=== PATIENT | male | born 1935 | race Caucasian/White ===

== ENCOUNTER → 2017-05-14 | Outpatient (CLI) | payer MEDICARE, BC ==
[~2017-05-14] MED LIST: ACET325 PO; AMLO10 PO; ASPI325EC PO; ASPI81CH PO; ASPI81EC PO; ATOR40TA PO; Ambien10 MG PO; CARB200 PO; CELE200 PO; CEPH500 PO; DIAZ5; Desyrel50 MG PO; Ferrous Sulfat325 M2 PO; GABA100 PO; GABA300 PO; HYDR1TAB94 PO; IBUP600; LEVSOD125 PO; LEVSOD50 PO; LIPO FLAVONOID PO; LIPOFLAVONOID PO; LOSA50 PO; LOSARTAN POTAS100 MG PO; MELA3 PO; NEBI10 PO; NEBI5 PO; OXYC5 PO; Omeprazole20 M1 PO; TADA10TA PO; TRAZ50 PO; [UNRECOGNIZED DRUG - OTHER]; [UNRECOGNIZED DRUG - OTHER] PO; [UNRECOGNIZED DRUG - REMARK] PO; [UNRECOGNIZED DRUG - REMARK] PO
== END | disposition home or self-care (01) ==
LOC: PLD 07:46 → LAB SHORT 07:46
DX: D22.5 Melanocytic nevi of trunk (principal)
CPT/HCPCS: 88305

== ENCOUNTER 2017-10-27 05:44 | Day surgery (SDC) | payer MEDICARE, BC ==
[2017-10-26 17:10] LABS: BASOPHILS ABSOLUTE AUTO 0.03 K/mm3 (0.00-0.23); BASOPHILS PERCENT AUTO 0 % (0-2); EOSINOPHILS ABSOLUTE AUTO 0.07 K/mm3 (0.00-0.68); EOSINOPHILS PERCENT AUTO 1 % (0-6); Hematocrit 44.8 % (37.0-53.0); Hemoglobin 14.6 g/dL (13.5-17.5); IMMATURE GRAN ABSOLUTE AUTO 0.01 K/mm3 (0.00-0.10); IMMATURE GRAN PERCENT AUTO 0 % (0-1); LYMPHOCYTES ABSOLUTE AUTO 1.47 K/mm3 (0.84-5.20); LYMPHOCYTES PERCENT AUTO 22 % (21-46); MONOCYTES ABSOLUTE AUTO 0.52 K/mm3 (0.16-1.47); MONOCYTES PERCENT AUTO 8 % (4-13); Mean Corpuscular HGB 26.9 pg (26.0-34.0); Mean Corpuscular HGB Conc 32.6 g/dL (31.5-36.5); Mean Corpuscular Volume 83 fL (80-100); Mean Platelet Volume 8.6 fL (9.1-12.4); NEUTROPHILS ABSOLUTE AUTO 4.58 K/mm3 (1.96-9.15); NEUTROPHILS PERCENT AUTO 69 % (41-73); Platelet Count 197 K/mm3 (150-400); RDW Coefficient Variation 14.9 % (11.7-14.2); RDW Standard Deviation 44.9 fL (35.1-46.3); Red Blood Cell Count 5.42 M/mm3 (4.30-5.90); White Blood Cell Count 6.68 K/mm3 (4.00-11.30)
[2017-10-26 17:30] LABS: International Normalized Ratio 1.13; Prothrombin Time Results 11.6 Sec (9.7-11.5)
[2017-10-26 18:01] LABS: Anion Gap 8 mmol/L (6-16); Blood Urea Nitrogen 18 mg/dL (8-24); Bun/Creatinine Ratio 18.9 (12.0-20.0); CO2, Blood 25 mmol/L (21-32); Calcium, Blood 9.2 mg/dL (8.5-10.1); Chloride, Blood 106 mmol/L (98-108); Creatinine, Blood 0.95 mg/dL (0.60-1.20); Glomerular Filtration Rate >60 (60-); Glucose, Blood 173 mg/dL (70-99); Magnesium, Blood 2.1 mg/dL (1.6-2.4); Potassium, Blood 3.8 mmol/L (3.5-5.5); Sodium, Blood 139 mmol/L (136-145)
[~2017-10-27] VITALS: Ht 180.3 cm; Wt 95.0 kg
[~2017-10-27 05:44] MED LIST changes: -AMLO10 PO; -ATOR40TA PO; -CEPH500 PO; -Desyrel50 MG PO; -HYDR1TAB94 PO; -LOSARTAN POTAS100 MG PO
[2017-10-27] MEDS ORDERED: Desyrel50 MG PO (06:46)
[2017-10-27] MEDS ORDERED: LOSARTAN POTAS100 MG PO (06:46)
[2017-10-27] MEDS ORDERED: ASPI81CH PO (06:47)
[2017-10-27] MEDS ORDERED: ATOR40TA PO (06:47)
[2017-10-27] MEDS ORDERED: AMLO10 PO (06:48)
[2017-10-28] MEDS ORDERED: CEPH500 PO (09:13)
[2017-10-28] MEDS ORDERED: HYDR1TAB94 PO (09:13)
== END 2017-10-28 09:46 | disposition home or self-care (01) ==
LOC: MHTC 05:44 → PCU 08:56 → MHTC 10-28 09:46
PROVIDERS: Internal Medicine Cardiovascular Disease
PROC: 02HK3JZ Insertion of Pacemaker Lead into Right Ventricle, Percutaneous Approach (ICD-10-PCS; principal; 2017-10-27)
PROC: 0JH606Z Insertion of Pacemaker, Dual Chamber into Chest Subcutaneous Tissue and Fascia, Open Approach (ICD-10-PCS; principal; 2017-10-27)
PROC: 02H63JZ Insertion of Pacemaker Lead into Right Atrium, Percutaneous Approach (ICD-10-PCS; principal; 2017-10-27)
DX: I44.2 Atrioventricular block, complete (principal); I10 Essential (primary) hypertension; E78.5 Hyperlipidemia, unspecified; G47.33 Obstructive sleep apnea (adult) (pediatric); I73.9 Peripheral vascular disease, unspecified; E89.0 Postprocedural hypothyroidism; Z86.73 Personal history of transient ischemic attack (TIA), and cerebral infarction without residual deficits; Z90.49 Acquired absence of other specified parts of digestive tract; Z96.653 Presence of artificial knee joint, bilateral; Z79.899 Other long term (current) drug therapy
CPT/HCPCS: 33208; 36415; 71045; 80048; 83735; 83880; 85025; 85610; 93005; 93010; 99152; 99153; C1785; C1898; J0690; J1644; J2250; J3010; J7030; J7040; Q9967

== ENCOUNTER → 2018-09-15 | Outpatient (CLI) | payer MEDICARE, BC ==
[~2018-09-15] MED LIST changes: +AMLO10 PO; +ATOR40TA PO; +CEPH500 PO; +Desyrel50 MG PO; +HYDR1TAB94 PO; +LOSARTAN POTAS100 MG PO
== END | disposition home or self-care (01) ==
LOC: LAB SHORT 15:53 → PLD 15:53
DX: D22.5 Melanocytic nevi of trunk (principal); L82.1 Other seborrheic keratosis
CPT/HCPCS: 88305

== ENCOUNTER → 2019-06-10 | Outpatient (CLI) | payer MEDICARE, BC ==
[2019-06-12 13:36] LABS: Stool Occult Bld Immuno 1 Positive (NEGATIVE)
== END ==
LOC: LAB SHORT 07:00 → LAB EV 07:00
PROVIDERS: Student in an Organized Health Care Education/Training Program
DX: R63.4 Abnormal weight loss (principal)
CPT/HCPCS: 82274

== ENCOUNTER → 2020-03-13 | Outpatient (CLI) | payer MEDICARE, BC ==
[2020-03-15 15:03] LABS: Stool Occult Bld Immuno 1 Negative (NEGATIVE)
== END | disposition home or self-care (01) ==
LOC: LAB SHORT 21:00 → LAB EV 21:00
PROVIDERS: Student in an Organized Health Care Education/Training Program
DX: R19.5 Other fecal abnormalities (principal)
CPT/HCPCS: 82274

== ENCOUNTER → 2021-02-22 | Outpatient (CLI) | payer MEDICARE, BC | END | disposition home or self-care (01) | LOC: LAB SHORT 15:30 → LAB 15:30 | DX: L98.9 Disorder of the skin and subcutaneous tissue, unspecified (principal) | CPT/HCPCS: 87070; 87205 ==